=== PATIENT | female | born 1970 | race Caucasian/White ===

== ENCOUNTER 2023-10-29 13:00 | Emergency (ER) | payer MEDICAID ==
[~2023-10-29] VITALS: Ht 162.6 cm; Wt 73.0 kg
[2023-10-29 13:04] VITALS: O2SAT 96
[2023-10-29] MEDS ORDERED: insulin (13:04)
[2023-10-29] MEDS: LACTATED RINGERS 1,000 ML IV SCH (13:55)
[2023-10-29] MEDS: ONDANSETRON HCL 4MG/2ML INJ IV ONE ×2 (13:55→17:03)
[2023-10-29 14:04] LABS: HEMATOCRIT. 42.8 % (36.0-48.0); HEMOGLOBIN. 14.4 g/dL (12.0-16.0); MEAN CORPUSCULAR HEMOGLOBIN 30.2 pg (28.0-32.0); MEAN CORPUSCULAR HGB CONC 33.7 g/dL (31.0-37.0); MEAN CORPUSCULAR VOLUME 89.5 fL (81.0-99.0); MEAN PLATELET VOLUME 8.2 fl (7.4-10.4); PLATELET 295 x1000/uL (130-400); RED BLOOD CELL COUNT 4.79 mill/uL (4.2-5.4); RED CELL DISTRIBUTION WIDTH 13.1 % (11.6-14.6)
[2023-10-29 14:13] LABS: DIFFERENTIAL COMMENT 1
[2023-10-29 14:23] LABS: HCG SCREEN NEGATIVE
[2023-10-29 14:26] LABS: ALANINE AMINOTRANSFERASE 30 IU/L (10-49); ALBUMIN 4.3 g/dL (3.2-4.8); ASPARTATE AMINOTRANSFERASE 37 IU/L (<34); BILIRUBIN TOTAL 0.8 mg/dL (0.1-1.0); CALCIUM 8.4 mg/dL (8.7-10.4); CARBON DIOXIDE 22 mEq/L (21-32); CHLORIDE 103 mEq/L (98-107); POTASSIUM 4.9 mEq/L (3.5-5.1); PROTEIN TOTAL 8.3 g/dL (6.0-8.3); SODIUM 132 mEq/L (136-145); UREA NITROGEN BLOOD 21 mg/dL (9-23)
[2023-10-29 14:35] LABS: GLUCOSE 413 mg/dL (70-105)
[2023-10-29 14:49] LABS: BETA HYDROXYBUTYRATE 0.7 mMol/L (0.0-0.3)
[2023-10-29 15:44] LABS: PLATELET ESTIMATE NORMAL
[2023-10-29] MEDS: INSULIN REGULAR (HUMULIN R) 300UNITS/3ML VIAL IV ONE (16:55)
[2023-10-29] MEDS ORDERED: ONDA4TAB11 PO (17:46)
[2023-10-29 18:00] VITALS: BP 119/57; PULSE 98; RESP 17; TEMP 98.2
== END 2023-10-29 18:34 | disposition home or self-care (01) ==
LOC: ER 13:40
DX: R11.2 Nausea with vomiting, unspecified (principal); E11.65 Type 2 diabetes mellitus with hyperglycemia; B34.9 Viral infection, unspecified; I10 Essential (primary) hypertension; Z88.6 Allergy status to analgesic agent; Z88.5 Allergy status to narcotic agent
CPT/HCPCS: 99285; 96374; 96361; 76705; 71045; 96375; 80053; 82010; 82962; 84703; 83690; 85025; 36415; J2405; J1815

== ENCOUNTER 2025-03-12 21:43 | Emergency (ER) | payer MEDICAID ==
[~2025-03-12] VITALS: Ht 152.4 cm; Wt 64.0 kg
[~2025-03-12 21:43] MED LIST: ONDA-239 PO; insulin
[2025-03-12 21:51] VITALS: TEMP 36.9; O2SAT 96
[2025-03-12] MEDS: ONDANSETRON HCL 4MG TABLET PO ONE (22:28)
[2025-03-12 22:51] LABS: BASOPHILS % 0.9 % (0.0-2.0); EOSINOPHILS % 3.0 % (0.0-5.0); HEMATOCRIT. 42.1 % (36.0-48.0); HEMOGLOBIN. 14.7 g/dL (12.0-16.0); LYMPHOCYTES % 28.6 % (20.0-50.0); MEAN PLATELET VOLUME 8.4 fl (7.4-10.4); MONOCYTES % 6.5 % (2.0-8.0); NEUTROPHILS % 61.0 % (40.0-76.0); PLATELET 319 x1000/uL (130-400); RED BLOOD CELL COUNT 4.77 mill/uL (4.2-5.4); RED CELL DISTRIBUTION WIDTH 12.5 % (11.6-14.6)
[2025-03-12 23:06] LABS: CREATININE 0.9 mg/dL (0.6-1.0)
[2025-03-12 23:07] LABS: TROPONIN I HIGH SENSITIVITY < 4 ng/L (3.0-34); UREA NITROGEN BLOOD 17 mg/dL (9-23)
[2025-03-12 23:08] LABS: ASPARTATE AMINOTRANSFERASE 20 IU/L (<34)
[2025-03-12 23:09] LABS: BILIRUBIN DIRECT 0.1 mg/dL (<=3.0); BILIRUBIN TOTAL 0.5 mg/dL (0.1-1.0); PROTEIN TOTAL 8.0 g/dL (6.0-8.3)
[2025-03-13 00:17] LABS: CLARITY URINE CLEAR (CLEAR); COLOR URINE YELLOW (YELLOW); GLUCOSE URINE 3+ (NEGATIVE); KETONES URINE TRACE (NEGATIVE); LEUKOCYTE ESTERASE URINE NEGATIVE (NEGATIVE); NITRITE URINE NEGATIVE (NEGATIVE); OCCULT BLOOD URINE NEGATIVE (NEGATIVE); PH URINE 5.5 (4.5-8.0); PROTEIN URINE NEGATIVE (NEGATIVE); SPECIFIC GRAVITY URINE 1.044 (1.005-1.030); UROBILINOGEN URINE 0.2 E.U./dL (0.2-1.0)
[2025-03-13] MEDS: MAGNESIUM/ALUMINUM HYDROXIDE/SIMETHICONE 30ML UDC PO ONE (00:20)
[2025-03-13] MEDS: KETOROLAC 15MG/ML VIAL IM ONE (00:21)
[2025-03-13 02:22] VITALS: BP 163/72; PULSE 74; RESP 14; O2SAT 98
[2025-03-13 03:41] LABS: RBC URINE 0-2 /hpf (0-2); WBC URINE 0-2 /hpf (0-2)
[2025-03-13 03:42] LABS: BACTERIA URINE NONE SEEN; SQUAMOUS EPITHELIAL CELL URINE FEW /lpf (RARE/1+)
== END 2025-03-13 02:25 | disposition home or self-care (01) ==
LOC: ER 21:43
DX: K29.70 Gastritis, unspecified, without bleeding (principal); E11.9 Type 2 diabetes mellitus without complications; I10 Essential (primary) hypertension; Z79.899 Other long term (current) drug therapy; Z88.5 Allergy status to narcotic agent
CPT/HCPCS: 99285; 80076; 80048; 81003; 83690; 85025; 84484; 36415; 74176; 96372; Q0162; J1885